=== PATIENT | male | born 1985 | race African-American/Black ===

== ENCOUNTER 2019-09-06 21:17 | Emergency (ER) | payer OTHER ==
[~2019-09-06] VITALS: Ht 165.1 cm; Wt 45.4 kg
[2019-09-06 21:20] VITALS: BP 124/80; TEMP 99
== END 2019-09-06 22:07 | disposition home or self-care (01) ==
LOC: ED 21:17
DX: S49.81XA Other specified injuries of right shoulder and upper arm, initial encounter (principal); S59.811A Other specified injuries right forearm, initial encounter; Y09 Assault by unspecified means; Y92.89 Other specified places as the place of occurrence of the external cause
CPT/HCPCS: 99281

== ENCOUNTER 2019-09-07 00:16 | Emergency (ER) | payer OTHER ==
[~2019-09-07] VITALS: Ht 165.1 cm; Wt 61.2 kg
[2019-09-07 02:34] VITALS: BP 129/81; TEMP 98.2
== END 2019-09-07 02:23 | disposition home or self-care (01) ==
LOC: ED 00:16
DX: S09.8XXA Other specified injuries of head, initial encounter (principal); S40.021A Contusion of right upper arm, initial encounter; S50.11XA Contusion of right forearm, initial encounter
CPT/HCPCS: 99283